=== PATIENT | male | born 2000 | race Two or more races ===

== ENCOUNTER 2024-09-09 05:44 | Inpatient (IN) | payer SELFPAY ==
--- NOTE | ~2024-09-09 | CT_ITS ---
EXAMINATION: CT ABDOMEN AND PELVIS WITH CONTRAST CLINICAL INFORMATION: Right lower quadrant pain. COMPARISON: None available. TECHNIQUE: Multidetector volumetric images were obtained from the superior aspect of the liver through the pubic symphysis following administration 85 mL of Omnipaque 350 intravenous contrast. Sagittal and coronal reformatted images were obtained on the technologist's workstation. Oral contrast: No This CT examination was performed using dose optimization techniques as appropriate, variously including the following: *Automated exposure control *Adjustment of mA and/or kV according to patient size (this includes techniques or standardized protocols for targeted exams where dose is matched to indication/reason for exam; i.e. extremities or head) *Use of iterative reconstruction technique DLP: 373 mGy-cm FINDINGS: LUNG BASES: The visualized lung bases are unremarkable. LIVER, GALLBLADDER, AND BILIARY TREE: The liver is normal in size, shape, and attenuation. No focal hepatic lesion or biliary ductal dilatation is present. The gallbladder is unremarkable with no evidence of radiopaque gallstones, gallbladder wall thickening, or obvious pericholecystic inflammatory changes. PANCREAS: Unremarkable. SPLEEN: Unremarkable. ADRENAL GLANDS: Unremarkable. KIDNEYS AND URETERS: The kidneys are normal in size, shape, and attenuation. No hydronephrosis, hydroureter, or calculi seen. No perinephric stranding. BLADDER: Unremarkable. GASTROINTESTINAL TRACT: The appendix is normal in appearance. The cecum is located within the midline of the abdomen and pelvis. Normal orientation of the superior mesenteric vein and superior mesenteric artery. Small bowel segments are present in the right lateral gutter along the right margin of the cecum. Gas is present in the lumen of the appendix. Maximum outer wall diameter of the appendix measures 5 mm, within normal limits of size. No periappendiceal fluid collections or inflammatory changes noted. No free intraperitoneal fluid or gas collections are visualized. No intestinal dilatation or mural thickening is identified. Normal appearance of the stomach and duodenum. ABDOMINAL WALL: No significant hernia is appreciated. LYMPH NODES: Normal. VASCULAR: Unremarkable. PELVIC VISCERA: Normal prostate and seminal vesicles. OSSEOUS STRUCTURES: Unremarkable. CT/CT abdomen pelvis w IV con IMPRESSION: *No acute abnormalities identified. Normal appendix. No free retroperitoneal fluid or gas collections. No urolithiasis. No hydronephrosis. 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 The cecum terminates within the midline of the pelvis and is not tethered to the normal right lateral gutter of the abdomen/pelvis. Normal appearing small bowel segments occupy the right lower abdominal quadrant. Electronically signed by: Tate Rojas MD 09/09/2024 07:58 AM EDT RP
[2024-09-09 05:49] VITALS: BP 154/90; PULSE 89; O2SAT 98
[2024-09-09 05:54] VITALS: BP 136/78; PULSE 77; RESP 18; TEMP 36.6; O2SAT 98; BMI 22.8
[2024-09-09 06:28] LABS: MANUAL DIFF FLAG NO
[2024-09-09 06:29] LABS: Basophils Percent Auto 0.5 % (0-2); Eosinophils Absolute Auto 0.1 X10*3/uL (0.0-0.4); Eosinophils Percent Auto 2.3 % (0-4); Hematocrit 41.3 % (42.0-52.0); Hemoglobin 14.1 g/dl (14.0-18.0); Imm Gran Abs Auto 0.01 X10*3/uL (0.00-0.03); Imm Gran Pct Auto 0.2 % (0.0-0.4); Lymphocytes Absolute Auto 2.1 X10*3/uL (1.2-4.9); Lymphocytes Percent Auto 33.3 % (20-40); Mean Corpuscular HGB Conc 34.1 g/dl (31.0-36.0); Mean Corpuscular Hemoglobin 29.9 pg (27.0-33.0); Mean Corpuscular Volume 87.7 fL (80.0-98.0); Mean Platelet Volume 10.2 fL (9.4-12.4); Monocytes Absolute Auto 0.5 X10*3/uL (0.1-1.2); Monocytes Percent Auto 7.8 % (2-11); Neutrophils Absolute Auto 3.5 x10*3/uL (2.0-8.3); Neutrophils Percent Auto 55.9 % (45-73); Platelet Count 153 X10*3/uL (160-400); Red Blood Count 4.71 X10*6/uL (4.60-5.80); Red Cell Distribution Width 12.2 % (11.0-16.0); White Blood Count 6.2 X10*3/uL (4.8-10.8)
--- NOTE | 2024-09-09 06:42 | ED.ABDPAIN ---
HPI - Abdominal Pain General Chief Complaint: Abdominal Pain Stated Complaint: LOWER ABDOMEN PAIN Time Seen by Provider: 09/09/24 06:29 Source: patient Mode of arrival: ambulatory Limitations: no limitations History of Present Illness ED Provider: Fortino Paul PA-C HPI narrative: 24 yo M no significant past medical history presents to the ED c/o RLQ abdominal pain with onset approximately 1.5 hours ago. Patient states he was getting up to go to the bathroom this morning when the pain started. It is a sharp pain, constant at 8/10. Pain is described to be in the periumbilical area radiating to the right lower quadrant. Denies fever, chills, nausea, vomiting, dizziness, diarrhea, constipation, urinary symptoms including pain with urination. Last bowel movement was yesterday and was a normal bowel movement per patient. Last PO intake 00:00. No past abdominal surgeries. No similar symptoms in past. No further complaints at this time. MD elicited complaint: abdominal pain Pertinent past history: none Onset (ago): hour(s) Pain Consistency: constant Location: periumbilical Severity: severe Pain scale (0-10): 8 Quality: sharp Migration to: RUQ Related Data Allergies Allergy/AdvReac Type Severity Reaction Status Date / Time No Known Allergies Allergy Verified 09/09/24 05:56 Review of Systems Review of Systems Yes all other systems are reviewed and are negative [facility] Past Medical History Medical History (Updated 09/09/24 @ 08:42 by LUCA Bermudez) Right lower quadrant pain Social History Social History Smoked in Last 30 Days: No Use of substances other than those prescribed or required for medical reasons: Yes Substance Use Type: Marijuana Advance Directives: No Do you have a plan to hurt others: No Plan Physical Exam ED Vital Signs: Vital Signs - 24 hr 09/09/24 05:54 09/09/24 07:44 Temperature 97.9 F 97.6 F Pulse Rate 77 78 Respiratory Rate 18 16 Blood Pressure 136/78 138/79 Pulse Oximetry 98 98 Oxygen Delivery Method Room Air Room Air BMI result Body Mass Index 22.8 Appearance: Alert. Oriented X3. Lying on stretcher, in distress significant amount of pain. Head: normocephalic, atraumatic. Eyes: Normal external inspection. ENT: Normal external inspection. Neck: Normal inspection. Neck supple. CVS: Normal heart rate and rhythm. Pulses normal. Respiratory: No respiratory distress. Abdomen: tense abd, no distention. extremely tender to light palpation in the periumbilical area and RLQ. Guarding. normal active +BS x4 Skin: Skin warm and clammy. Pale skin color. Normal skin turgor. No rashes. Extremities: No lower extremity edema. No joint swelling. Neuro/psych: Oriented X 3. CN II-XII grossly intact. Normal speech and cognition. Medical Decision Making Medical Decision Making [facility] Narrative: 24 yo M no significant past medical history presents to the ED c/o RLQ abdominal pain with onset approximately 1.5 hours ago. On exam, patient is lying in bed, in distress and appears toxic with a significant amount of pain. Patient is pale, clammy. His abdomen is soft, extremely tender to light palpation in the periumbilical area and RLQ, positive guarding and +BS x4 with concern for acute appendicitis, appendicitis with perforation, pyelonephritis, nephrolithiasis, acute cystitis, testicular torsion. Vital signs are stable with a BP of 136/78, heart rate 77, saturating well on room air at 98%. Patient is afebrile 97.9 F in neurovascularly intact. Patient labs showing no leukocytosis. Plan: Pain control with Dilaudid, CT scan abdomen/pelvis Case d/w Dr. Bowens who came to evaluate the patient at the bedside. CT scan reviewed - no acute appendicitis but there is incomplete midgut rotation, partial midgut malrotation. question intermittent volvulus? pain slightly improved after IV dilaudid. abd bridge tender on exam. will plan to admit to surgical service for observation. Differential Diagnosis Differential Diagnoses: The differential diagnosis associated with the presentation includes acute appendicitis, appendicitis with perforation, volvulus, pyelonephritis, nephrolithiasis, acute cystitis, testicular torsion Admission/Observation Consideration of admission/observation: Escalation of care including admission/observation considered Consult Healthcare Provider Management of the patient was discussed with: Criminal Justice Professor Dr. Bowens Lab Data [facility] Lab Attestation statement: I reviewed the patient's lab results. no leukocytiosis, normal lactic acid 09/09/24 06:23 09/09/24 06:23 Labs: Lab Results 10/09/24 10/09/24 Range/Units 06:23 07:25 WBC 6.2 (4.8-10.8) X10*3/uL RBC 4.71 (4.60-5.80) X10*6/uL Hgb 14.1 (14.0-18.0) g/dl Hct 41.3 L (42.0-52.0) % MCV 87.7 (80.0-98.0) fL MCH 29.9 (27.0-33.0) pg MCHC 34.1 (31.0-36.0) g/dl RDW 12.2 (11.0-16.0) % Plt Count 153 L (160-400) X10*3/uL MPV 10.2 (9.4-12.4) fL Immature Gran % (Auto) 0.2 (0.0-0.4) % Neut % (Auto) 55.9 (45-73) % Lymph % (Auto) 33.3 (20-40) % Rusk % (Auto) 7.8 (2-11) % Eos % (Auto) 2.3 (0-4) % Baso % (Auto) 0.5 (0-2) % Lymph # (Auto) 2.1 (1.2-4.9) X10*3/uL Rusk # (Auto) 0.5 (0.1-1.2) X10*3/uL Eos # (Auto) 0.1 (0.0-0.4) X10*3/uL Baso # (Auto) 0.0 (0.0-0.2) X10*3/uL Abs Immat Gran (auto) 0.01 (0.00-0.03) X10*3/uL Absolute Neuts (auto) 3.5 (2.0-8.3) x10*3/uL Absolute Nucleated RBC 0.000 (0.0-0.012) X10*3/uL Nucleated RBC % (auto) 0.0 (0.0-0.2) /100WBC Sodium 144 (135-145) mmol/L Potassium 3.5 (3.3-5.1) mmol/L Chloride 106 (96-108) mmol/L Carbon Dioxide 29 (22-29) mmol/L Anion Gap 13 (12-20) BUN 10 (9-16) mg/dL Creatinine 0.82 (0.5-1.4) mg/dL Estim Creat Clear Calc 139.0 Estimated GFR > 60 Random Glucose 103 (60-115) mg/dL Lactic Acid 0.9 (0.5-2.0) mmol/L Calcium 9.8 (8.4-10.2) mg/dL Total Bilirubin 0.3 (0.0-1.0) mg/dL Direct Bilirubin 0.1 (0.0-0.5) mg/dL AST 14 (5-37) U/L ALT 8 (0-40) U/L Alkaline Phosphatase 62 (39-117) U/L Total Protein 7.2 (6.5-8.0) g/dL Albumin 4.3 (3.5-5.0) g/dL Lipase 22 (8-78) U/L Independent Interpretation I performed an independent interpretation of an: CT Scan Interpretation: significant amount of air in the colon, unable to visualize appendix abnormality Radiology Impression Discussion of test interpretation with radiology: I have reviewed the radiologist's reading. Radiologist Impression: CT/CT abdomen pelvis w IV con IMPRESSION: *No acute abnormalities identified. Normal appendix. No free retroperitoneal fluid or gas collections. No urolithiasis. No hydronephrosis. 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 The cecum terminates within the midline of the pelvis and is not tethered to the normal right lateral gutter of the abdomen/pelvis. Normal appearing small bowel segments occupy the right lower abdominal quadrant. Prescription Management I considered prescription management with: Pain Medication and Antibiotic Medications Administered Discontinued Medications Generic Name Dose Route Start Last Admin Trade Name Ángela PRN Reason Stop Dose Admin Hydromorphone HCl 1 mg 09/09/24 06:32 09/09/24 06:43 Hydromorphone Hcl 1 Mg/Ml Syringe IVPUSH 09/09/24 06:33 1 mg ONCE ONE Administration Protocol Piperacillin Sod/Tazobactam 50 mls @ 100 mls/hr 09/09/24 06:52 09/09/24 07:51 Sod 3.375 gm/ Sodium Chloride IV 09/09/24 07:21 100 mls/hr ONCE ONE Administration Iohexol 85 ml 09/09/24 06:57 09/09/24 06:58 Iohexol 350 Mg/Ml 100 Ml Infus..Btl IV 09/09/24 06:58 85 ml ONCE ONE Administration Ondansetron HCl 4 mg 09/09/24 06:32 09/09/24 06:43 Ondansetron Hcl 4 Mg/2 Ml Vial IVPUSH 09/09/24 06:33 4 mg ONCE ONE Administration Critical Care Time Critical Care Time Critical Care Time: Yes Total Critical Care Time: 39 Attestation: I have personally provided critical care time exclusive of time spent on separately billable procedures. Time includes review of lab data, radiology results, discussion with consultants, and monitoring for potential decompensation. Intervention performed as documented. Discharge Plan Discharge Clinical Impression: Right lower quadrant pain Patient Disposition: Admitted As Inpatient
[2024-09-09] MEDS: HYDROmorphone HCl 1 MG/ML SYRINGE IVPUSH (06:43)
[2024-09-09] MEDS: ondansetron HCL 4 MG/2 ML VIAL IVPUSH (06:43)
[2024-09-09 06:48] LABS: Alanine Aminotransferase 8 U/L (0-40); Albumin Level 4.3 g/dL (3.5-5.0); Alkaline Phosphatase 62 U/L (39-117); Anion Gap 13 (12-20); Aspartate Amino Transferase 14 U/L (5-37); Bilirubin Direct 0.1 mg/dL (0.0-0.5); Bilirubin Total 0.3 mg/dL (0.0-1.0); Blood Urea Nitrogen 10 mg/dL (9-16); Calcium 9.8 mg/dL (8.4-10.2); Carbon Dioxide 29 mmol/L (22-29); Chloride 106 mmol/L (96-108); Estimated Glomerular Filt Rate > 60; Glucose Random 103 mg/dL (60-115); Lipase 22 U/L (8-78); Potassium 3.5 mmol/L (3.3-5.1); Sodium 144 mmol/L (135-145); Total Protein 7.2 g/dL (6.5-8.0)
[2024-09-09] MEDS: iohexoL 350 MG/ML 100 ML INFUS..BTL 85 ML IV (06:58)
[2024-09-09 07:41] LABS: Lactic Acid 0.9 mmol/L (0.5-2.0)
[2024-09-09 07:44] VITALS: BP 138/79; PULSE 78; RESP 16; TEMP 36.4; O2SAT 98
[2024-09-09] MEDS: Piperacillin Sodium/Tazobactam 3.375 GM in 0.9 % Sodium Chloride 50 ML IV (07:51)
--- NOTE | 2024-09-09 08:00 | PC.NURSE ---
Pt enters my care- Pt is lying on his stretcher- pt c/o generalized lower abdominal pain- woke him from sleep- Pt states he is feeling slightly better. Dr Bowens a bedside
--- NOTE | 2024-09-09 08:06 | P.HPGS_ITS ---
History of Present Illness History of Present Illness Date of Service: 09/10/24 Chief complaint: RLQ pain Narrative: Adan Rodriguez is a 24 year old male the ER because of abdominal pain. He says that he went to bed without any symptoms last night but woke up around 530 this morning because of pain in the right side of his abdomen. He denies any nausea or vomiting. He denies any other GI complaints. He says he has not had any similar symptoms in the past. He did state that his pain was ?severe?. He says that because of the persistence of the pain, he came to the emergency room. He denies any other medical problems. He does state that he has been having a cough for the past 2 days. Review of Systems Constitutional: Constitutional: Denies chills and Denies fever(s) Cardiovascular: Cardiovascular: Denies chest pain, Denies dyspnea and Denies dyspnea on exertion Respiratory: Respiratory: Reports cough, Denies dyspnea and Denies dyspnea on exertion Gastrointestinal: Gastrointestinal: Denies hematochezia and Denies change in bowel habits Genitourinary: Genitourinary: Denies hematuria and Denies difficulty urinating Musculoskeletal: Musculoskeletal: Denies back pain and Denies limited range of motion Neurologic: Denies focal weakness and Denies convulsions Psychiatric: Psychiatric: Denies depression and Denies mood swings PMFSH Past Medical History Medical History (Updated 09/09/24 @ 08:42 by LUCA Bermudez) Right lower quadrant pain Social History Social History Substance Use Type: Marijuana Meds Allergies Allergy/AdvReac Type Severity Reaction Status Date / Time No Known Allergies Allergy Verified 09/09/24 05:56 Physical Exam Vital Signs: Vital Signs: Last Vital Signs Temp 97.6 F 09/09/24 07:44 Pulse 78 09/09/24 07:44 Resp 16 09/09/24 07:44 BP 138/79 09/09/24 07:44 Pulse Ox 98 09/09/24 07:44 O2 Del Method Room Air 09/09/24 07:44 BMI result Body Mass Index 22.8 Const: Other: On his phone, appears well General: comfortable and no acute distress Orientation/consciousness: patient oriented x3 Neck: Neck: Yes no lymphadenopathy Resp: Auscultation: clear to auscultation bilaterally Cardio: Rhythm: regular rhythm GI: Other: Some tenderness in the right side of the abdomen Palpation (GI): Soft to palpation, nontender and no guarding Neuro: General: patient oriented x3 Results Results Labs: Short CBC 09/09/24 Range/Units 06:23 WBC 6.2 (4.8-10.8) X10*3/uL Hgb 14.1 (14.0-18.0) g/dl Hct 41.3 L (42.0-52.0) % Plt Count 153 L (160-400) X10*3/uL BMP 09/09/24 06:23 Sodium 144 Potassium 3.5 Chloride 106 Carbon Dioxide 29 BUN 10 Creatinine 0.82 Calcium 9.8 Liver Function 09/09/24 Range/Units 06:23 Total Bilirubin 0.3 (0.0-1.0) mg/dL Direct Bilirubin 0.1 (0.0-0.5) mg/dL AST 14 (5-37) U/L ALT 8 (0-40) U/L Alkaline Phosphatase 62 (39-117) U/L Albumin 4.3 (3.5-5.0) g/dL Laboratory Results WBC 6.2 X10*3/uL (4.8-10.8) 09/09/24 06:23 RBC 4.71 X10*6/uL (4.60-5.80) 09/09/24 06:23 Hgb 14.1 g/dl (14.0-18.0) 09/09/24 06:23 Hct 41.3 % (42.0-52.0) L 09/09/24 06:23 MCV 87.7 fL (80.0-98.0) 09/09/24 06:23 MCH 29.9 pg (27.0-33.0) 09/09/24 06:23 MCHC 34.1 g/dl (31.0-36.0) 09/09/24 06:23 RDW 12.2 % (11.0-16.0) 09/09/24 06:23 Plt Count 153 X10*3/uL (160-400) L 09/09/24 06:23 MPV 10.2 fL (9.4-12.4) 09/09/24 06:23 Immature Gran % (Auto) 0.2 % (0.0-0.4) 09/09/24 06:23 Neut % (Auto) 55.9 % (45-73) 09/09/24 06:23 Lymph % (Auto) 33.3 % (20-40) 09/09/24 06:23 Edwards % (Auto) 7.8 % (2-11) 09/09/24 06:23 Eos % (Auto) 2.3 % (0-4) 09/09/24 06:23 Baso % (Auto) 0.5 % (0-2) 09/09/24 06:23 Lymph # (Auto) 2.1 X10*3/uL (1.2-4.9) 09/09/24 06:23 Edwards # (Auto) 0.5 X10*3/uL (0.1-1.2) 09/09/24 06:23 Eos # (Auto) 0.1 X10*3/uL (0.0-0.4) 09/09/24 06:23 Baso # (Auto) 0.0 X10*3/uL (0.0-0.2) 09/09/24 06:23 Abs Immat Gran (auto) 0.01 X10*3/uL (0.00-0.03) 09/09/24 06:23 Absolute Neuts (auto) 3.5 x10*3/uL (2.0-8.3) 09/09/24 06:23 Absolute Nucleated RBC 0.000 X10*3/uL (0.0-0.012) 09/09/24 06:23 Nucleated RBC % (auto) 0.0 /100WBC (0.0-0.2) 09/09/24 06:23 Sodium 144 mmol/L (135-145) 09/09/24 06:23 Potassium 3.5 mmol/L (3.3-5.1) 09/09/24 06:23 Chloride 106 mmol/L (96-108) 09/09/24 06:23 Carbon Dioxide 29 mmol/L (22-29) 09/09/24 06:23 Anion Gap 13 (12-20) 09/09/24 06:23 BUN 10 mg/dL (9-16) 09/09/24 06:23 Creatinine 0.82 mg/dL (0.5-1.4) 09/09/24 06:23 Estim Creat Clear Calc 139.0 09/09/24 06:23 Estimated GFR > 60 09/09/24 06:23 Random Glucose 103 mg/dL (60-115) 09/09/24 06:23 Lactic Acid 0.9 mmol/L (0.5-2.0) 09/09/24 07:25 Calcium 9.8 mg/dL (8.4-10.2) 09/09/24 06:23 Total Bilirubin 0.3 mg/dL (0.0-1.0) 09/09/24 06:23 Direct Bilirubin 0.1 mg/dL (0.0-0.5) 09/09/24 06:23 AST 14 U/L (5-37) 09/09/24 06:23 ALT 8 U/L (0-40) 09/09/24 06:23 Alkaline Phosphatase 62 U/L (39-117) 09/09/24 06:23 Total Protein 7.2 g/dL (6.5-8.0) 09/09/24 06:23 Albumin 4.3 g/dL (3.5-5.0) 09/09/24 06:23 Lipase 22 U/L (8-78) 09/09/24 06:23 Impressions Abdomen/Pelvis CT 09/09/24 06:32 IMPRESSION: *No acute abnormalities identified. Normal appendix. No free retroperitoneal fluid or gas collections. No urolithiasis. No hydronephrosis. 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 The cecum terminates within the midline of the pelvis and is not tethered to the normal right lateral gutter of the abdomen/pelvis. Normal appearing small bowel segments occupy the right lower abdominal quadrant. Electronically signed by: Tate Rojas MD 09/09/2024 07:[address] scan report/results: report reviewed and image reviewed CT scan - pelvis: report reviewed and image reviewed Assessment and Plan (1) Right lower quadrant pain: Status: Acute He describes pain on the right lower quadrant from 04/30 this morning. He does state that he has seems better now although he still has some pain. Exam is otherwise benign. His pain is localized with a right lower quadrant and right flank area. He does not have any leukocytosis. His lactate is normal. I have reviewed his CAT scan images. There are no inflammatory changes in the right lower quadrant. There are no signs of any obstruction. There is suggestion of partial midgut rotation with the cecum very mobile and more medial location. However, there was no evidence of any obstruction or vascular compromise. There is no evidence of midgut volvulus. He does not have any history of periodic abdominal pain from childhood. There is no indication for any urgent surgical intervention at this time. However, because of his pain, we will admit him and keep him on bowel rest and on IV fluids for now. We will do close serial abdominal exams. I explained to him the plan as above. Quality Stroke Does the patient have a stroke diagnosis?: No VTE Prior VTE?: No VTE Risk Level:: Medical - low VTE Device Contraindication: N/A - Device Ordered VTE Drug Contraindication: Treatment Not Indicated Procedures Date of Service Date of Service: 09/10/24
[2024-09-09 08:40] VITALS: BP 125/73; PULSE 68; RESP 18; O2SAT 100
[2024-09-09 09:03] LABS: Appearance Urine Clear; Color Urine Yellow; Glucose Urine UA Negative (Negative); Leukocyte Esterase Urine Negative (Negative); Nitrite Urine Negative (Negative); PH 6.5 (5.0-9.0); Specific Gravity - Urine >= 1.030 (1.005-1.025); Urine Blood Negative (Negative); Urine Ketones Negative (Negative); Urine Protein Negative (Neg-Trace)
[2024-09-09] MEDS: 0.9 % Sodium Chloride 1,000 ML 80 ML IVCONT (09:55)
--- NOTE | 2024-09-09 10:25 | PHA.MEDREC ---
Pharmacy Consult ? Medication Reconciliation Pharmacy has completed the medication reconciliation. Spoke with pt and confirmed he is not on any medications.
--- NOTE | 2024-09-09 13:43 | PC.NURSE ---
Pt states he is feeling much better and would like to go home. Blanca Wu
[2024-09-09 15:53] VITALS: BP 127/74; PULSE 71; RESP 16; TEMP 36.1; O2SAT 100
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
[2024-09-09 16:01] VITALS: BP 127/74; PULSE 71; RESP 16; TEMP 36.1; O2SAT 100
--- NOTE | 2024-09-09 16:13 | PM.EVENT ---
Event Note Date of Service: 09/09/24 Event Note: Informed by the nurse that the patient had insisted on signing out against medical advice Apparently stated that he feels much better He had signed AMA papers with the nurse Time Spent With Patient Time: Total time managing care of this patient today ____ minutes.
== END 2024-09-09 18:00 | disposition left against medical advice (07) | DRG 392 ==
LOC: HO.ED 08:14 → HO.EDOVER 08:40
PROVIDERS: Physician Assistant; Admitting Provider Surgery; Emergency Provider Emergency Medicine; Visit Provider Surgery
DX: R10.31 Right lower quadrant pain (principal)
CPT/HCPCS: 36415; 74177; 80048; 80076; 81003; 83605; 83690; 85025; 87040; 99284; J1171; J2405; J2543; Q9967

== ENCOUNTER → 2024-09-09 08:11 | Outpatient (BNV) | payer SELFPAY | PROVIDERS: Admitting Provider Surgery; Emergency Provider Emergency Medicine; Visit Provider Surgery | DX: R10.31 Right lower quadrant pain (principal) | CPT/HCPCS: 99222; 99499 ==